=== PATIENT | male | born 2005 | race Caucasian/White ===

== ENCOUNTER 2024-03-12 16:58 | Emergency (ER) | payer OTHER, SELFPAY ==
[2024-03-12 17:01] VITALS: BP 142/91
[2024-03-12 17:54] LABS: % Basophils 0.4 % (0-2); % Eosinophils 2.6 % (0-6); % Immature Granulocytes 0.2 % (0-0.5); % Lymphocytes 42.8 % (20.5-51.1); Absolute Eosinophils 0.1 10^3/uL (0-0.7); Absolute Lymphocytes 2.3 10^3/uL (1.2-3.4); Absolute Monocytes 0.5 10^3/uL (0.1-0.6); Absolute Neutrophils 2.4 10^3/uL (1.4-6.5); Hematocrit 45.4 % (39.0-52.0); Hemoglobin 15.4 g/dL (13.0-18.0); Mean Corp Hgb Conc. 33.9 g/dL (33.0-37.0); Mean Corpuscular Hgb 31.9 pg (27.0-31.0); Mean Platelet Volume 9.6 fL (7.4-10.4); Nucleated Red Blood Cells % 0 % (-); Platelet Count 205 10^3/uL (130-400); Red Blood Cell Count 4.83 10^6/uL (4.70-6.10); Red Cell Dist. Width 12.3 % (11.5-14.5); White Blood Cell Count 5.3 10^3/uL (4.8-10.8)
[2024-03-12 18:00] VITALS: BP 125/73
[2024-03-12 18:16] LABS: ALT (SGPT) 16 U/L (0-50); AST (SGOT) 22 U/L (17-59); Albumin 5.3 g/dl (3.5-5.0); Alkaline Phosphatase 106 U/L (38-126); Blood Urea Nitrogen 20 mg/dl (9-20); Calcium 9.6 mg/dl (8.4-10.2); Carbon Dioxide 28 mmol/L (22-30); Chloride 101 mmol/L (98-107); Glucose 101 mg/dl (70-99); Sodium 143 mmol/L (135-145); Total Bilirubin 1.1 mg/dl (0.2-1.3); eGFR > 60.00
[2024-03-12 18:44] LABS: TSH Reflex To Free T4 3.46 uIU/ml (0.47-4.68)
--- NOTE | 2024-03-12 18:49 | ED.GENMED ---
History of Present Illness
General
Chief Complaint: Cardiac Symptoms
Source: patient and family (Mom at bedside)
Exam Limitations: none
Time Seen by Provider: 03/12/24 17:16
Nursing documentation reviewed up to this point in time: agreed with
History of Present Illness
History of Present Illness:
18-year-old male presents the emergency department mom for evaluation of heart palpitations. Patient states for the past 3 days patient has noticed intermittent heart palpitations although seemingly becoming more frequent. Patient states that he
notices palpitations more when he has resting and not distracted by other activities. He has never noticed that his heart is racing just feels a sensation of his heart beating. Patient denies any associated chest pain or any shortness of breath.
No tearing back pain. No dizziness, lightheadedness, fevers, cough, or other symptoms.
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 No history of chest pain, palpitations, lightheadedness or history of passing out during exercise.
Patient is wondering if symptoms may be related to anxiety given he just manage 4 days of college finals.
There is a family history of thyroid dysfunction. Patient's mom does have constrictive pericarditis. There is no history of sudden cardiac in family.
Review of Systems
Review of Systems
Allergies reviewed?: Yes
All Other Systems: ROS reviewed and negative except as documented in HPI and ROS
Phy Exam
Physical Exam
Physical Exam:
Vitals: Patient's vital signs are stable. Afebrile
General: Patient is very well appearing, no acute distress. Nontoxic appearing
Skin: Warm and dry, no rashes or lesions
Head: Normocephalic, atraumatic
Eyes: Sclera nonicteric. EOMs intact. No nystagmus.
Throat: Protecting airway
Neck: Normal ROM, no cervical spine tenderness, no meningismus
Cardiac: Regular rate and rhythm, no murmurs. No reproducible chest wall
Pulm: Normal respiratory effort, no wheezes, rales, rhonchi heard on exam.
Abdomen: Abdomen soft. No abdominal tenderness.
Extremities: No evidence of cyanosis or edema. Palpable and equal distal pulses in bilateral upper and lower extremities. Sensation fully intact
Neuro: AAOx3. Grossly intact.
Psychiatric: Normal affect.
Course
Orders/Labs/Results
Orders:
Orders
03/12/24 16:59
EKG [Electrocardiogram (*1)] Stat
Reason for Study: Palpitations
EKG- Treatment ONCE
03/12/24 17:46
Complete Blood Count/With Diff Urgent
Comprehensive Metabolic Panel Urgent
TSH Reflex To Free T4 Urgent
Abnormal Lab Results
03/12/24
17:46
MCH 31.9 H pg
(27.0-31.0)
Glucose 101 H mg/dl
(70-99)
Albumin 5.3 H g/dl
(3.5-5.0)
03/12/24 17:46
03/12/24 17:46
Vital Signs
Initial and Last Documented VS:
Initial Vital Signs
Temp Pulse Resp BP Pulse Ox
98.3 F 82 17 142/91 100
03/12/24 17:01 03/12/24 17:01 03/12/24 17:01 03/12/24 17:01 03/12/24 17:01
Last Documented Vital Signs
Temp Pulse Resp BP Pulse Ox
98.3 F 87 14 125/73 100
03/12/24 17:01 03/12/24 18:45 03/12/24 18:45 03/12/24 18:00 03/12/24 17:01
MDM/Problems Addressed
Differential Diagnosis Includes:
Not limited to: Dehydration, cardiac arrhythmia, PVCs, hyperthyroid, anxiety, pericarditis, etc.
MDM/Problems Addressed:
18-year-old male presenting with history of palpitations over the past few days. No associated chest pain, shortness of breath, dizziness/lightheadedness, or fainting. Symptoms are not exertional and not pleuritic. Patient exercising at normal
level without any reproducible symptoms. He did go for a 2 mile walk with mom today and was asymptomatic. Patient arrives with stable vitals. He is afebrile. On exam�patient is very well-appearing, no apparent distress. Heart regular rate and
rhythm without any murmur gallop. Lungs are clear bilaterally. Patient is perfusing well with palpable and equal distal pulses in bilateral upper and lower extremities. Low suspicion for acute cardiac emergency. Will check basic labs and thyroid
function. Will place patient on monitor. EKG was obtained in triage and reviewed with attending physician without acute abnormalities or ischemic findings. No evidence of cardiac arrhythmia or PVCs.
Update: Labs reviewed. No clinically significant abnormalities. Thyroid level is normal. Patient has been monitored in the emergency department on cardiac/vascular sonographer without any evidence of arrhythmia. He has remained stable and very
well-appearing. feel patient is stable for discharge home with primary follow-up outpatient. Did give patient name for a class c driver for possible Holter monitor. Very close return precautions discussed with mom and patient. They are comfortable
this plan. Case discussed with attending physician
Chronic conditions affecting care:
N/A
Acute Exacerbation and/or Progression of Chronic Illness:
N/A
*Pulse Oximetry
Patient hypoxic: no
*EKG
Interpreted by ED Provider?: Yes
EKG Intrepretation Date: 03/12/24
Interpretation: normal
Comparison EKG: no comparison EKG present
Heart Rate: 81
Rate: normal
Rhythm: sinus
[place]: normal axis
Interval: normal QT interval
QRS Pattern: normal QRS
Ischemia: no ischemia
*[employer]p Transportation Interpretation
Rate: normal
Interpretation: normal
Heart Rate: 82
Rhythm: sinus
*Critical Care Note
Total Time (30-74mins, 75-104mins- exclusive of procedures): Not Applicable
ED Attending Note
-
Portions of this chart may have been created with voice recognition software.� Occasional wrong word or��sound alike� substitutions may have occurred due to the inherent limitations of voice recognition software.
Discharge Plan
Departure
Patient Disposition: Home (Routine Discharge)
Date of Disposition: 03/12/24
Time of Disposition: 18:49
Patient with high blood pressure during this ER visit?: Yes
Condition: Good
Covid-19: Not Applicable
Discharge Problem:
Palpitations
Instructions: Palpitations ED
Prescriptions:
No Action
Flintstones Multi-Vit Gummies
PO DAILY
Referrals:
Beth Javed, DO [Family Provider] -
Will Chavez, DO [Active] - Next open appointment
Activity Restrictions/Additional Instructions:
RETURN TO THE EMERGENCY DEPARTMENT WITH ANY CHEST PAIN, SHORTNESS OF BREATH, PERSISTENT ELEVATED HEART RATE, DIZZINESS, FAINTING, WORSENING IN CURRENT SYMPTOMS, OR ANY OTHER CONCERNS
-As discussed your lab work in the emergency department was all normal. Your thyroid level was checked and was in the normal range.
-You should follow-up with your primary care doctor for further evaluation. I provided the name for a class c driver above. You may need to have a Holter monitor testing performed outpatient for further evaluation of palpitations
-Stay well-hydrated.
Monitor symptoms closely and return to the emergency department with any acute worsening/new symptoms or any other concerns
Interventions
Interventions:
*Risk Screen - Suicide Last Done: 03/12/24 17:02
*General Assessment Last Done: 03/12/24 17:02
*Neglect/Abuse Screening Last Done: 03/12/24 17:02
ED- Fall Risk Assessment Last Done: 03/12/24 18:00
*Nursing Disposition Last Done: 03/12/24 19:04
ED- Pulmonary Assessment Last Done: 03/12/24 18:00
ED- Cardiac Assessment Last Done: 03/12/24 18:00
Discharge Date and Time
Discharge Date/Time: 03/12/24 19:04
Print Language: [id number]
== END 2024-03-12 19:04 | disposition home or self-care (01) ==
LOC: EMR 16:58
PROVIDERS: Physician Assistant; EMERGENCY PHYSICIAN Student in an Organized Health Care Education/Training Program; FAMILY PHYSICIAN Family Medicine
DX: R00.2 Palpitations (principal)
CPT/HCPCS: 99284; 80053; 84443; 85025; 93005